=== PATIENT | female | born 1945 | race Caucasian/White ===

== ENCOUNTER 2024-05-13 05:11 | Inpatient (IN) | payer OTHER, MEDICAID ==
[~2024-05-13] VITALS: Ht 165.1 cm; Wt 63.5 kg
[2024-05-13 05:43] LABS: BASOPHILS % (AUTO) 0.1 % (0.0-2.0); EOSINOPHILS # (AUTO) 0.1 K/uL (0.0-0.7); EOSINOPHILS % (AUTO) 0.3 % (0.0-6.0); HEMATOCRIT 45 % (33-45); HEMOGLOBIN 15.2 g/dL (11.5-14.8); LYMPHOCYTES # (AUTO) 1.1 K/uL (0.8-4.8); LYMPHOCYTES % (AUTO) 3.3 % (20.0-44.0); MEAN CORPUSCULAR HEMOGLOBIN 31 PG (26.0-33.0); MEAN CORPUSCULAR HGB CONC 34 g/dl (31.0-36.0); MEAN CORPUSCULAR VOLUME 92 fL (82-100); MONOCYTES # (AUTO) 2.7 K/uL (0.1-1.30); MONOCYTES % (AUTO) 7.6 % (2.0-12.0); NEUTROPHILS # (AUTO) 30.9 K/uL (1.8-8.9); NEUTROPHILS % (AUTO) 88.7 % (43.0-81.0); PLATELET COUNT (AUTO) 303 K/uL (150-450); RED BLOOD CELL COUNT(AUTO) 4.95 MIL/uL (4.0-5.2); RED CELL DISTRIBUTION WIDTH 15.3 % (11.5-15.0)
[2024-05-13 05:48] LABS: WHITE BLOOD COUNT (AUTO) 34.8 K/uL (4.3-11.0)
[2024-05-13 05:58] LABS: INR 1.58 (0.91-1.10); PARTIAL THROMBOPLASTIN TIME 39.9 SEC (24.3-34.3); PROTHROMBIN TIME 16.3 SECS (9.2-11.1)
[2024-05-13 06:01] LABS: ALANINE AMINOTRANSFERASE 40 U/L (12-78); ALBUMIN 2.5 g/dL (3.4-5.0); ALKALINE PHOSPHATASE 106 U/L (46-116); ASPARTATE AMINOTRANSFERASE 23 U/L (15-37); BILIRUBIN,DIRECT 0.5 mg/dL (0.0-0.2); BILIRUBIN,TOTAL 1.2 mg/dL (0.2-1.0); CALCIUM, SERUM 10.9 mg/dL (8.5-10.1); CARBON DIOXIDE 28 mmol/L (21-32); CHLORIDE 104 mmol/L (98-107); CREATININE 1.3 mg/dL (0.6-1.3); GLUCOSE 218 mg/dL (74-106); NT-PRO BNP 1984 pg/mL (0-125); POTASSIUM 3.1 mmol/L (3.5-5.1); SODIUM SERUM 140 mmol/L (136-145); TOTAL PROTEIN, SERUM 7.9 g/dL (6.4-8.2); UREA NITROGEN, BLOOD 26 mg/dL (7-18)
[2024-05-13 06:02] LABS: ABG BASE EXCESS -4.7 mmol/L (-2.0-3.0); ABG PCO2 37.9 mmHg (32.0-45.0); ABG PH 7.347 (7.350-7.450); ABG PO2 117.2 mmHg (83.0-108.0); ABG TOTAL HEMOGLOBIN 15.6 G/dL (12.0-16.0); COHb 0.1 % (0.5-1.5); MetHb 0.3 % (0.0-1.5); O2Hb 97.6 % (94.0-97.0); SITE, ABG RIGHT RADIAL
[2024-05-13 06:04] LABS: LACTIC ACID 2.9 mmol/L (0.4-2.0)
[2024-05-13] MEDS ORDERED: IOHEXOL-300 100 ML VIAL IV ONE ×2 (06:07→09:50)
[2024-05-13] MEDS ORDERED: VANCOMYCIN 1 GM /D5W 250 ML PB IV ONE (06:17)
[2024-05-13] MEDS: VANCOMYCIN 1 GM in IV D5W 250 ML IV ONE (06:27)
[2024-05-13 06:43] LABS: BAND % (MANUAL) 1 % (0.0-5.0); LYMPHOCYTES % (MANUAL) 3 % (16-48); MONOCYTES % (MANUAL) 5 % (0-11.0); NEUTROPHILS % (MANUAL) 91 (42-76); PLATELET ESTIMATE ADEQUATE
[2024-05-13] MEDS ORDERED: MORPHINE SULFATE INJ 4 MG/ML DISP.SYRIN ONE (07:17)
[2024-05-13] MEDS ORDERED: ONDANSETRON HCL/PF 4 MG/2 ML VIAL ONE (07:17)
[2024-05-13] MEDS: ONDANSETRON HCL/PF 4 MG/2 ML VIAL IVP ONE (07:20)
[2024-05-13] MEDS: MORPHINE SULFATE INJ 2 MG/ML DISP.SYRIN IV ONE (07:20)
[2024-05-13] MEDS: CEFEPIME 1 GM in IV D5W 50 ML IV ONE (07:45)
[2024-05-13] MEDS: IV PREMIX 0.45% NS + KCL 1,000 ML IV ONE (08:56)
[2024-05-13] MEDS ORDERED: FUROSEMIDE 20 MG/2 ML VIAL ONE (09:35)
[2024-05-13] MEDS: FUROSEMIDE 20 MG/2 ML VIAL IV ONE (09:54)
[2024-05-13] MEDS ORDERED: MAG HYDROX/AL HYDROX/SIMETH 30 ML UDC PO PRN (11:30)
[2024-05-13] MEDS: ENOXAPARIN SODIUM 40 MG/0.4 ML DISP.SYRIN SQ SCH (11:30)
[2024-05-13] MEDS ORDERED: Z GUARD REMEDY 4 OZ OINT TP PRN (11:30)
[2024-05-13] MEDS ORDERED: ZOLPIDEM TARTRATE 5 MG TABLET PO PRN (11:30)
[2024-05-13] MEDS ORDERED: MAGNESIUM HYDROXIDE 30 ML UDC PO PRN ×3 (11:30→17:45)
[2024-05-13] MEDS ORDERED: ONDANSETRON HCL/PF 4 MG/2 ML VIAL IVP PRN (11:30)
[2024-05-13] MEDS: IV D5/ 0.9% NACL 1,000 ML IV ONE (13:30)
[2024-05-13] MEDS ORDERED: COLE1TAB PO (13:49)
[2024-05-13] MEDS ORDERED: TROS60CA3 PO (13:49)
[2024-05-13] MEDS ORDERED: DOCU100C36 PO (13:49)
[2024-05-13] MEDS ORDERED: LEVO75TA99 PO (13:49)
[2024-05-13] MEDS ORDERED: [UNRECOGNIZED DRUG - CODE] MC (13:49)
[2024-05-13] MEDS ORDERED: NUT.237L71 PO (13:49)
[2024-05-13] MEDS ORDERED: HYDR453.3 TP (13:49)
[2024-05-13] MEDS ORDERED: LIDO15CR6 TP (13:49)
[2024-05-13] MEDS ORDERED: MAGN400O6 PO (13:49)
[2024-05-13] MEDS ORDERED: LISI1TAB32 PO (13:49)
[2024-05-13] MEDS ORDERED: ESTR42.53 VG (13:49)
[2024-05-13] MEDS ORDERED: BISA10SU11 RC (13:49)
[2024-05-13] MEDS ORDERED: NA P133E RC (13:49)
[2024-05-13] MEDS ORDERED: ESOM40CA52 PO (13:49)
[2024-05-13] MEDS ORDERED: AMIN30LI2 PO (13:49)
[2024-05-13] MEDS ORDERED: FOLI0.8T2 PO (13:49)
[2024-05-13] MEDS ORDERED: APIX5TAB PO (13:49)
[2024-05-13] MEDS ORDERED: AMOX1TAB16 PO (13:49)
[2024-05-13] MEDS ORDERED: ACET-637 PO (13:49)
[2024-05-13] MEDS ORDERED: ENOXAPARIN SODIUM 40 MG/0.4 ML DISP.SYRIN SQ ONE (13:58)
[2024-05-13] MEDS ORDERED: NA PHOS,M-B/NA PHOS,DI-BA 1 EA ENEMA RC PRN ×2 (17:00→17:45)
[2024-05-13] MEDS ORDERED: INSULIN REGULAR, HUMAN 100 UNIT/ML 3 ML VIAL SQ PRN ×2 (17:00→17:45)
[2024-05-13] MEDS ORDERED: HYDROCORTISONE 2.5% CREAM 28.4 GM TUBE TP SCH (17:00)
[2024-05-13] MEDS ORDERED: BISACODYL SUPP (10 MG) 10 MG/SUPP.RECT SUPP.RECT RC PRN ×2 (17:00→17:45)
[2024-05-13] MEDS ORDERED: LIDOCAINE TP SCH (17:00)
[2024-05-13] MEDS ORDERED: APIXABAN 5 MG TABLET PO SCH (17:00)
[2024-05-13] MEDS ORDERED: *INSULIN REGULAR(HUMULIN R)HUM 100 UNIT/ML VIAL SQ PRN ×2 (17:00→17:45)
[2024-05-13] MEDS ORDERED: DEXTROSE 50%-WATER 50 ML DISP.SYRIN IV PRN ×3 (17:00→20:00)
[2024-05-13] MEDS ORDERED: IV NS 0.9% 1,000 ML IV SCH (17:00)
[2024-05-13] MEDS ORDERED: ACETAMINOPHEN ES 500 MG TABLET PO PRN ×2 (17:00→17:45)
[2024-05-13] MEDS ORDERED: Medication Not On Formulary EA (Esomeprazole Magnesium 40 MG) PO SCH (17:00)
[2024-05-13] MEDS ORDERED: ESTRADIOL 1 GM VG SCH (17:00)
[2024-05-13] MEDS ORDERED: BLOOD SUGAR DIAGNOSTIC 1 EACH STRIP VI SCH ×2 (17:30→17:45)
[2024-05-13 18:00] VITALS: BP 100/65; TEMP 98.2; O2SAT 95
[2024-05-13] MEDS: IV NS 0.9% 1,000 ML IV SCH (18:14)
[2024-05-13] MEDS: CEFEPIME 1 GM in IV D5W 50 ML IV SCH (20:23)
[2024-05-13] MEDS: IV D5/ 0.9% NACL 1,000 ML IV PRN (20:24)
[2024-05-13 22:00] VITALS: BP 122/72; TEMP 97.8; O2SAT 95
[2024-05-13] MEDS: BLOOD SUGAR DIAGNOSTIC 1 EACH STRIP IN SCH (23:35)
[2024-05-13] MEDS: INSULIN REGULAR, HUMAN 100 UNIT/ML 3 ML VIAL SQ PRN (23:37)
[2024-05-14] VITALS (11 sets, daily range): BP systolic 105–125; BP diastolic 60–84; TEMP 97.5–98.4; O2SAT 94–99
[2024-05-14] MEDS: VANCOMYCIN 1 GM in IV D5W 250ml IV SCH (05:20)
[2024-05-14] MEDS: PANTOPRAZOLE 40 MG TABLET.DR PO SCH (07:30)
[2024-05-14] MEDS: LEVOTHYROXINE SODIUM 75 MCG TABLET PO SCH (07:30)
[2024-05-14] MEDS ORDERED: LEVOTHYROXINE SODIUM 75 MCG TABLET PO SCH (07:30)
[2024-05-14] MEDS: APIXABAN 5 MG TABLET PO SCH (08:43)
[2024-05-14] MEDS: DOCUSATE SODIUM 100 MG CAPSULE PO SCH (08:43)
[2024-05-14] MEDS: BOOST FOOD- BERRY 237 ML BOX PO SCH (08:43)
[2024-05-14] MEDS: PROSOURCE / PROSTAT (PYXIS) 30 ML UDC PO SCH (08:44)
[2024-05-14] MEDS: HYDROCHLOROTHIAZIDE 25 MG TABLET PO SCH (08:44)
[2024-05-14] MEDS: LISINOPRIL (10MG) 10 MG TABLET PO SCH (08:44)
[2024-05-14] MEDS: VIT B CMPLX 3/FA/VIT C/BIOTIN 1 TAB TABLET PO SCH (08:44)
[2024-05-14] MEDS: HYDROCORTISONE 2.5% CREAM 28.4 GM TUBE TP SCH (08:45)
[2024-05-14] MEDS ORDERED: FUROSEMIDE 40 MG/4 ML VIAL IV SCH (09:00)
[2024-05-14] MEDS ORDERED: DOCUSATE SODIUM 100 MG CAPSULE PO SCH (09:00)
[2024-05-14] MEDS ORDERED: COLESTIPOL HCL PO SCH ×2 (09:00)
[2024-05-14] MEDS ORDERED: TROSPIUM CHLORIDE 60 MG PO SCH (09:00)
[2024-05-14] MEDS: ACETAMINOPHEN 325 MG TABLET PO PRN (10:53)
[2024-05-14 15:33] LABS: ABG BASE EXCESS -3.2 mmol/L (-2.0-3.0); ABG OXYGEN SATURATION 95.8 % (94.0-98.0); ABG PCO2 32.9 mmHg (32.0-45.0); ABG PH 7.413 (7.350-7.450); ABG PO2 78.6 mmHg (83.0-108.0); ABG TOTAL HEMOGLOBIN 13.6 G/dL (12.0-16.0); COHb 0.3 % (0.5-1.5); MetHb 0.1 % (0.0-1.5); O2Hb 95.4 % (94.0-97.0); SITE, ABG LEFT RADIAL
[2024-05-14 16:31] LABS: BASOPHILS % (AUTO) 0.1 % (0.0-2.0); EOSINOPHILS # (AUTO) 0.1 K/uL (0.0-0.7); EOSINOPHILS % (AUTO) 0.3 % (0.0-6.0); HEMATOCRIT 37 % (33-45); HEMOGLOBIN 12.2 g/dL (11.5-14.8); LYMPHOCYTES # (AUTO) 1.3 K/uL (0.8-4.8); LYMPHOCYTES % (AUTO) 4.4 % (20.0-44.0); MEAN CORPUSCULAR HEMOGLOBIN 30 PG (26.0-33.0); MEAN CORPUSCULAR HGB CONC 33 g/dl (31.0-36.0); MEAN CORPUSCULAR VOLUME 92 fL (82-100); MONOCYTES % (AUTO) 6.7 % (2.0-12.0); NEUTROPHILS # (AUTO) 25.9 K/uL (1.8-8.9); NEUTROPHILS % (AUTO) 88.5 % (43.0-81.0); PLATELET COUNT (AUTO) 290 K/uL (150-450); RED BLOOD CELL COUNT(AUTO) 4.07 MIL/uL (4.0-5.2); WHITE BLOOD COUNT (AUTO) 29.3 K/uL (4.3-11.0)
[2024-05-14 16:36] LABS: CALCIUM, SERUM 9.8 mg/dL (8.5-10.1); CREATININE 1.2 mg/dL (0.6-1.3); POTASSIUM 3.7 mmol/L (3.5-5.1)
[2024-05-14 16:45] LABS: LACTIC ACID 1.3 mmol/L (0.4-2.0)
[2024-05-15] VITALS: BP 100/54; TEMP 98; O2SAT 96
[2024-05-15 03:44] VITALS: O2SAT 96
[2024-05-15 04:00] VITALS: BP 110/61; TEMP 98.8; O2SAT 97
[2024-05-15 08:00] VITALS: BP 107/57; TEMP 98.8; O2SAT 98
[2024-05-15 08:13] LABS: BASOPHILS # (AUTO) 0.1 K/uL (0.0-0.2); BASOPHILS % (AUTO) 0.2 % (0.0-2.0); EOSINOPHILS # (AUTO) 0.2 K/uL (0.0-0.7); EOSINOPHILS % (AUTO) 0.9 % (0.0-6.0); HEMATOCRIT 37 % (33-45); HEMOGLOBIN 12.1 g/dL (11.5-14.8); LYMPHOCYTES # (AUTO) 1.4 K/uL (0.8-4.8); LYMPHOCYTES % (AUTO) 5.5 % (20.0-44.0); MEAN CORPUSCULAR HEMOGLOBIN 30 PG (26.0-33.0); MEAN CORPUSCULAR HGB CONC 33 g/dl (31.0-36.0); MEAN CORPUSCULAR VOLUME 93 fL (82-100); MONOCYTES # (AUTO) 1.2 K/uL (0.1-1.30); MONOCYTES % (AUTO) 5.1 % (2.0-12.0); NEUTROPHILS # (AUTO) 21.7 K/uL (1.8-8.9); NEUTROPHILS % (AUTO) 88.3 % (43.0-81.0); PLATELET COUNT (AUTO) 244 K/uL (150-450); RED BLOOD CELL COUNT(AUTO) 3.96 MIL/uL (4.0-5.2); RED CELL DISTRIBUTION WIDTH 15.8 % (11.5-15.0); WHITE BLOOD COUNT (AUTO) 24.6 K/uL (4.3-11.0)
[2024-05-15 08:26] LABS: ALBUMIN 1.9 g/dL (3.4-5.0); BILIRUBIN,TOTAL 0.4 mg/dL (0.2-1.0); CALCIUM, SERUM 9.5 mg/dL (8.5-10.1); CREATININE 0.7 mg/dL (0.6-1.3); MAGNESIUM 1.4 mg/dL (1.8-2.4); PHOSPHORUS 1.3 mg/dL (2.5-4.9); POTASSIUM 3.5 mmol/L (3.5-5.1); TOTAL PROTEIN, SERUM 5.8 g/dL (6.4-8.2)
[2024-05-15] MEDS: Magnesium 1GM/D5W 100ML PREMIX 100 ML IV SCH (10:43)
[2024-05-15 11:18] VITALS: O2SAT 94
[2024-05-15] MEDS: K PHOS NEUTRAL 250 MG TABLET PO ONE (15:32)
[2024-05-15 16:00] VITALS: BP 110/63; TEMP 98.7; O2SAT 99
[2024-05-15] MEDS: VANCOMYCIN 750 MG in IV D5W 250 ML IV SCH (17:21)
== END 2024-05-15 20:59 | disposition short-term general hospital (02) | DRG 871 ==
LOC: ER 05:19 → TELE1 17:37 → TELE-TD 19:01 → TELE1 05-14 17:52 → MEDSG1 05-15 10:38
PROVIDERS: ADMIT Student in an Organized Health Care Education/Training Program; ATTEND Student in an Organized Health Care Education/Training Program
DX: A41.9 Sepsis, unspecified organism (principal); E43 Unspecified severe protein-calorie malnutrition; I21.A1 Myocardial infarction type 2; J15.69 Pneumonia due to other Gram-negative bacteria; J96.01 Acute respiratory failure with hypoxia; I13.0 Hypertensive heart and chronic kidney disease with heart failure and stage 1 through stage 4 chronic kidney disease, or unspecified chronic kidney disease; N17.9 Acute kidney failure, unspecified; I82.402 Acute embolism and thrombosis of unspecified deep veins of left lower extremity; E87.20 Acidosis, unspecified; K11.20 Sialoadenitis, unspecified; I50.9 Heart failure, unspecified; N18.2 Chronic kidney disease, stage 2 (mild); Z87.09 Personal history of other diseases of the respiratory system; I48.91 Unspecified atrial fibrillation; E78.5 Hyperlipidemia, unspecified; E03.9 Hypothyroidism, unspecified; K21.9 Gastro-esophageal reflux disease without esophagitis; M48.00 Spinal stenosis, site unspecified; F41.9 Anxiety disorder, unspecified; Z96.649 Presence of unspecified artificial hip joint; Z88.1 Allergy status to other antibiotic agents; Z88.5 Allergy status to narcotic agent; Z88.8 Allergy status to other drugs, medicaments and biological substances; K80.20 Calculus of gallbladder without cholecystitis without obstruction; I65.21 Occlusion and stenosis of right carotid artery; K62.89 Other specified diseases of anus and rectum; E87.6 Hypokalemia; E83.52 Hypercalcemia; R59.0 Localized enlarged lymph nodes; E11.22 Type 2 diabetes mellitus with diabetic chronic kidney disease; E27.8 Other specified disorders of adrenal gland; E86.0 Dehydration; Z87.440 Personal history of urinary (tract) infections; Y95 Nosocomial condition; Z86.718 Personal history of other venous thrombosis and embolism; E86.9 Volume depletion, unspecified
CPT/HCPCS: 31720; 36415; 36600; 70491-TC; 71045-TC; 80048-TC; 80053-TC; 80076-TC; 82803-TC; 82962-TC; 83605-TC; 83735-TC; 83880; 84100-TC; 84484-TC; 85025-TC; 85730-TC; 87040-TC; 87081-TC; 92526; 92611-TC; 93307-TC; 93880-TC; 93970-TC; 94760-TC; 94799-TC; A4223; G0378; J0692; J1650; J1815; J1940; J2270; J2405; J3370; J3371; J3475; J7042; J7050; J7060; Q9967